=== PATIENT | female | born 1940 | race Caucasian/White ===

== ENCOUNTER 2016-11-21 16:05 | Inpatient (IN) | payer OTHER ==
[~2016-11-21] VITALS: Ht 177.8 cm; Wt 110.4 kg
[~2016-11-21 16:05] MED LIST: CATAPRES0.2 MG PO; CRESTOR5 MG PO; FISH OIL WITH1 EACH PO; HYDROCHLOROTHIA25 MG PO; KLOR-CON M2020 MEQ PO; PERCOCET 5/31 TABLET PO; PERI-COLACE TA1 EACH PO
[2016-11-21 16:53] LABS: HEMATOCRIT 38.8 % (36.0-46.0); MCH 30.2 PG (29.0-34.0); MCHC 32.7 G/DL (30.0-36.0); MCV 92.2 FL (83-99); MEAN PLAT.VOLUME 10.7 uM^3 (9.5-12.4); PLATELET COUNT 204 K/uL (156-360); RBC DIS.WIDTH-CV 14.5 % (11.8-14.6); RBC DIS.WIDTH-SD 48.8 % (39-53); RED BLOOD COUNT 4.21 M/uL (3.80-5.20)
[2016-11-21 17:00] LABS: CHLORIDE 109 mEq/L (99-109); POTASSIUM 3.2 mEq/L (3.7-5.4); SODIUM 144 mEq/L (136-147)
[2016-11-21 17:02] LABS: GLUCOSE 121 mg/dL (70-99)
[2016-11-21 17:03] LABS: ANION GAP 11 MEQ/L (2-14)
[2016-11-21 17:05] LABS: GFR ESTIMATE (CALCULATED) 57 mL/min/
[2016-11-21 17:06] LABS: UREA NITROGEN (BUN) 14 mg/dL (9-23)
[2016-11-21 17:10] LABS: TROP-I INTERPRETATION NEGATIVE; TROPONIN-I 0.11 ng/mL (0.0-0.30)
[2016-11-21] MEDS ORDERED: PRESERVISION T1 EACH PO (18:10)
[2016-11-21] MEDS ORDERED: MEGARED OMEGA-1 EACH PO (18:11)
[2016-11-21] MEDS ORDERED: LOPRESSOR50 MG PO (18:11)
[2016-11-21] MEDS ORDERED: SUPER MULTIVIT1 EACH PO (18:11)
[2016-11-21 20:40] VITALS: BP 145/95
[2016-11-22 01:08] VITALS: BP 148/90
[2016-11-22 05:13] VITALS: BP 130/85
[2016-11-22 05:38] LABS: TROP-I INTERPRETATION NEGATIVE; TROPONIN-I 0.13 ng/mL (0.0-0.30)
[2016-11-22 05:51] LABS: ALKALINE PHOSPHATASE 115 IU/L (3-129); ANION GAP 12 MEQ/L (2-14); CHLORIDE 108 MEQ/L (99-109); GFR ESTIMATE (CALCULATED) 57 mL/min/; GLUCOSE 126 mg/dL (70-99); POTASSIUM 3.3 MEQ/L (3.7-5.4); SAMPLE HEMOLYSIS CHECK 0; SAMPLE ICTERIC CHECK 0; SAMPLE LIPEMIA CHECK 0; SODIUM 145 MEQ/L (136-147); TOTAL BILIRUBIN 1.7 MG/DL (0.0-1.0); UREA NITROGEN (BUN) 16 mg/dL (9-23)
[2016-11-22 07:38] VITALS: BP 155/108
[2016-11-22 12:09] VITALS: BP 138/89
[2016-11-22 13:10] LABS: TROP-I INTERPRETATION NEGATIVE
[2016-11-22 16:06] VITALS: BP 149/97
[2016-11-22 20:25] VITALS: BP 144/82
[2016-11-23 00:58] VITALS: BP 122/78
[2016-11-23 04:50] VITALS: BP 142/89
[2016-11-23 06:15] LABS: ALKALINE PHOSPHATASE 106 IU/L (3-129); ANION GAP 12 MEQ/L (2-14); CHLORIDE 106 MEQ/L (99-109); GFR ESTIMATE (CALCULATED) 51 mL/min/; GLUCOSE 127 mg/dL (70-99); POTASSIUM 3.3 MEQ/L (3.7-5.4); SAMPLE HEMOLYSIS CHECK 0; SAMPLE ICTERIC CHECK 0; SAMPLE LIPEMIA CHECK 0; SODIUM 144 MEQ/L (136-147); UREA NITROGEN (BUN) 21 mg/dL (9-23)
[2016-11-23 06:16] LABS: TOTAL BILIRUBIN 2.1 MG/DL (0.0-1.0)
[2016-11-23 08:15] VITALS: BP 130/100
[2016-11-23 11:02] VITALS: BP 120/84
[2016-11-23 15:00] VITALS: BP 131/88
[2016-11-23 19:49] VITALS: BP 147/96
[2016-11-24 00:06] VITALS: BP 114/82
[2016-11-24 06:00] VITALS: BP 148/70
[2016-11-24 06:12] LABS: ALKALINE PHOSPHATASE 114 IU/L (3-129); ANION GAP 12 MEQ/L (2-14); CHLORIDE 105 MEQ/L (99-109); GFR ESTIMATE (CALCULATED) 51 mL/min/; GLUCOSE 130 mg/dL (70-99); POTASSIUM 3.2 MEQ/L (3.7-5.4); SAMPLE HEMOLYSIS CHECK 0; SAMPLE ICTERIC CHECK 0; SAMPLE LIPEMIA CHECK 0; SODIUM 144 MEQ/L (136-147); UREA NITROGEN (BUN) 23 mg/dL (9-23)
[2016-11-24 06:16] LABS: TOTAL BILIRUBIN 1.5 MG/DL (0.0-1.0)
[2016-11-24 07:17] VITALS: BP 122/81
[2016-11-24 11:14] VITALS: BP 112/59
[2016-11-24 15:16] VITALS: BP 104/57
[2016-11-24 20:28] VITALS: BP 119/73
[2016-11-25 00:08] VITALS: BP 125/75
[2016-11-25 05:51] VITALS: BP 122/83
[2016-11-25 07:19] VITALS: BP 126/78
[2016-11-25 09:31] LABS: ALKALINE PHOSPHATASE 116 IU/L (3-129); ANION GAP 13 MEQ/L (2-14); CHLORIDE 105 MEQ/L (99-109); GFR ESTIMATE (CALCULATED) 57 mL/min/; GLUCOSE 175 mg/dL (70-99); HDL CHOLESTEROL 25 MG/DL (Desirable>=50); LDL CHOLESTEROL 80 mg/dL (Desirable<100); NON-HDL CHOLESTEROL 103 mg/dL (Desirable<160); POTASSIUM 3.8 MEQ/L (3.7-5.4); SAMPLE HEMOLYSIS CHECK 0; SAMPLE ICTERIC CHECK 0; SAMPLE LIPEMIA CHECK 0; SODIUM 144 MEQ/L (136-147); TOTAL BILIRUBIN 1.4 MG/DL (0.0-1.0); TOTAL CHOLESTEROL 128 mg/dL (Desirable<200); TRIGLYCERIDES 115 MG/DL (Normal: <150); UREA NITROGEN (BUN) 24 mg/dL (9-23)
[2016-11-25] MEDS ORDERED: LISINOPRIL5 MG PO (10:23)
[2016-11-25] MEDS ORDERED: SIMVASTATIN10 MG PO (10:23)
[2016-11-25] MEDS ORDERED: K-DUR20 MEQ PO (10:23)
[2016-11-25] MEDS ORDERED: ASPIRIN81 M2 PO (10:23)
[2016-11-25] MEDS ORDERED: THERAGRAN1 TABLET PO (10:23)
[2016-11-25] MEDS ORDERED: KLOR-CON M2020 MEQ PO (10:26)
[2016-11-25] MEDS ORDERED: LASIX40 MG PO (10:26)
[2016-11-25 11:23] VITALS: BP 113/60
== END 2016-11-25 13:05 | disposition home health service (06) | DRG 292 ==
LOC: EME 16:05 → EDOF 18:00 → 4EAST 18:00 → ENRESERV 18:20 → 4EAST 20:39
PROVIDERS: Family Medicine; Internal Medicine
DX: I50.23 Acute on chronic systolic (congestive) heart failure (principal); I47.2 Ventricular tachycardia; I11.0 Hypertensive heart disease with heart failure; I25.5 Ischemic cardiomyopathy; I25.10 Atherosclerotic heart disease of native coronary artery without angina pectoris; E66.9 Obesity, unspecified; R29.810 Facial weakness; E87.6 Hypokalemia; E78.5 Hyperlipidemia, unspecified; Z68.35 Body mass index [BMI] 35.0-35.9, adult; Z85.048 Personal history of other malignant neoplasm of rectum, rectosigmoid junction, and anus; Z93.3 Colostomy status; Z87.891 Personal history of nicotine dependence; Z98.61 Coronary angioplasty status
CPT/HCPCS: 71020; 80048; 80053; 80061; 83880; 84443; 84484; 85027; 93005; 93306; 99281; 99285; J1650; J1940

== ENCOUNTER 2017-03-12 17:27 | Inpatient (IN) | payer OTHER ==
[~2017-03-12] VITALS: Ht 175.3 cm; Wt 115.6 kg
[~2017-03-12 17:27] MED LIST changes: +ASPIRIN81 M2 PO; +K-DUR20 MEQ PO; +LASIX40 MG PO; +LISINOPRIL5 MG PO; +LOPRESSOR50 MG PO; +PRESERVISION T1 EACH PO; +SIMVASTATIN10 MG PO; +SUPER MULTIVIT1 EACH PO; +THERAGRAN1 TABLET PO
[2017-03-12 18:08] LABS: HEMATOCRIT 40.8 % (36.0-46.0); HEMOGLOBIN 13.1 G/DL (11.9-15.5); MCH 27.2 PG (29.0-34.0); MCHC 32.1 G/DL (30.0-36.0); MCV 84.6 FL (83-99); PLATELET COUNT 186 K/uL (156-360); RBC DIS.WIDTH-CV 17.6 % (11.8-14.6); RBC DIS.WIDTH-SD 52.4 % (39-53); RED BLOOD COUNT 4.82 M/uL (3.80-5.20); WHITE BLOOD COUNT 5.8 K/uL (4.1-10.2)
[2017-03-12 18:22] LABS: CHLORIDE 109 mEq/L (99-109); POTASSIUM 3.1 mEq/L (3.7-5.4); SODIUM 143 mEq/L (136-147)
[2017-03-12 18:24] LABS: GLUCOSE 97 mg/dL (70-99)
[2017-03-12 18:28] LABS: CREATININE 1.1 mg/dL (0.6-1.3); GFR ESTIMATE (CALCULATED) 51 mL/min/
[2017-03-12 18:29] LABS: UREA NITROGEN (BUN) 21 mg/dL (9-23)
[2017-03-12 18:37] LABS: TROP-I INTERPRETATION NEGATIVE; TROPONIN-I 0.06 ng/mL (0.0-0.30)
[2017-03-12] MEDS ORDERED: CARVEDILOL3.125 MG PO (19:39)
[2017-03-12] MEDS ORDERED: OLMESARTAN MEDO20 MG PO (19:39)
[2017-03-12] MEDS ORDERED: MICRO-K10 ME2 PO (19:40)
[2017-03-12] MEDS ORDERED: METFORMIN HCL500 M1 PO (19:41)
[2017-03-12] MEDS ORDERED: ENTRESTO 24 MG1 EACH PO (19:43)
[2017-03-12] MEDS ORDERED: MEGARED OMEGA-1 EACH PO (19:44)
[2017-03-12 23:00] VITALS: BP 119/77
[2017-03-13 08:15] LABS: TROP-I INTERPRETATION NEGATIVE; TROPONIN-I 0.07 ng/mL (0.0-0.30)
[2017-03-13 08:38] VITALS: BP 101/65
[2017-03-13 09:15] LABS: ALBUMIN 3.1 G/DL (3.2-4.8); ALKALINE PHOSPHATASE 104 IU/L (3-129); ALT (GPT) 9 IU/L (3-49); AST (GOT) 18 IU/L (2-34); CHLORIDE 107 MEQ/L (99-109); GFR ESTIMATE (CALCULATED) 57 mL/min/; GLUCOSE 112 mg/dL (70-99); POTASSIUM 3.2 MEQ/L (3.7-5.4); SODIUM 147 MEQ/L (136-147); TOTAL BILIRUBIN 3.6 MG/DL (0.0-1.0); TOTAL PROTEIN 5.1 G/DL (6.4-8.3); UREA NITROGEN (BUN) 22 mg/dL (9-23)
[2017-03-13 13:26] VITALS: BP 101/54
[2017-03-13 16:25] VITALS: BP 92/61
[2017-03-13 19:06] VITALS: BP 113/57
[2017-03-13 23:57] VITALS: BP 97/57
[2017-03-14] VITALS (7 sets, daily range): BP systolic 90–112; BP diastolic 51–65
[2017-03-14 06:27] LABS: CHLORIDE 106 MEQ/L (99-109); CREATININE 1.2 MG/DL (0.6-1.3); GFR ESTIMATE (CALCULATED) 46 mL/min/; GLUCOSE 106 mg/dL (70-99); POTASSIUM 3.2 MEQ/L (3.7-5.4); SODIUM 145 MEQ/L (136-147); UREA NITROGEN (BUN) 22 mg/dL (9-23)
[2017-03-15 04:26] VITALS: BP 93/56
[2017-03-15 06:43] LABS: CHLORIDE 105 MEQ/L (99-109); CREATININE 1.2 MG/DL (0.6-1.3); GFR ESTIMATE (CALCULATED) 46 mL/min/; GLUCOSE 121 mg/dL (70-99); SODIUM 142 MEQ/L (136-147); UREA NITROGEN (BUN) 24 mg/dL (9-23)
[2017-03-15 06:48] LABS: POTASSIUM 4.1 MEQ/L (3.7-5.4)
[2017-03-15 07:20] VITALS: BP 98/62
[2017-03-15 11:27] VITALS: BP 100/58
[2017-03-15 16:15] VITALS: BP 148/94
[2017-03-15 20:07] VITALS: BP 122/70
[2017-03-15 22:13] VITALS: BP 108/78
[2017-03-16] VITALS (9 sets, daily range): BP systolic 95–139; BP diastolic 65–79
[2017-03-16 07:04] LABS: CHLORIDE 105 MEQ/L (99-109); CREATININE 1.2 MG/DL (0.6-1.3); GFR ESTIMATE (CALCULATED) 46 mL/min/; SODIUM 139 MEQ/L (136-147); UREA NITROGEN (BUN) 27 mg/dL (9-23)
[2017-03-16 07:19] LABS: GLUCOSE 90 mg/dL (70-99)
[2017-03-16 09:59] LABS: LYME DISEASE SEROLOGY SCREEN NEGATIVE (NEGATIVE)
[2017-03-17 03:45] VITALS: BP 120/70
[2017-03-17 07:05] LABS: CHLORIDE 102 MEQ/L (99-109); CREATININE 1.1 MG/DL (0.6-1.3); GFR ESTIMATE (CALCULATED) 51 mL/min/; GLUCOSE 99 mg/dL (70-99); POTASSIUM 4.4 MEQ/L (3.7-5.4); SODIUM 139 MEQ/L (136-147); UREA NITROGEN (BUN) 29 mg/dL (9-23)
[2017-03-17 07:56] VITALS: BP 117/65
[2017-03-17 11:46] VITALS: BP 113/61
[2017-03-17 15:53] VITALS: BP 114/73
[2017-03-17 20:47] VITALS: BP 99/61
[2017-03-18 00:50] VITALS: BP 170/67
[2017-03-18 00:51] VITALS: BP 109/73
[2017-03-18 07:18] LABS: CHLORIDE 103 MEQ/L (99-109); CREATININE 1.3 MG/DL (0.6-1.3); GFR ESTIMATE (CALCULATED) 42 mL/min/; GLUCOSE 101 mg/dL (70-99); POTASSIUM 3.9 MEQ/L (3.7-5.4); SODIUM 144 MEQ/L (136-147); UREA NITROGEN (BUN) 29 mg/dL (9-23)
[2017-03-18 08:29] VITALS: BP 122/70
[2017-03-18 12:11] VITALS: BP 99/74
[2017-03-18 13:17] LABS: HEMOGLOBIN A1c (GLYCOHEMOGLOB) 6.9 % (Below 5.7)
[2017-03-18 15:38] VITALS: BP 139/93
[2017-03-18 20:06] VITALS: BP 112/73
[2017-03-19 00:03] VITALS: BP 142/86
[2017-03-19 07:12] VITALS: BP 104/61
[2017-03-19 07:21] LABS: CHLORIDE 102 MEQ/L (99-109); CREATININE 1.2 MG/DL (0.6-1.3); GFR ESTIMATE (CALCULATED) 46 mL/min/; GLUCOSE 96 mg/dL (70-99); SODIUM 138 MEQ/L (136-147); UREA NITROGEN (BUN) 31 mg/dL (9-23)
[2017-03-19 09:12] VITALS: BP 110/52
[2017-03-19 11:00] VITALS: BP 104/70
[2017-03-19] MEDS ORDERED: ENTRESTO 49 MG1 EACH PO (12:59)
== END 2017-03-19 14:24 | DRG 292 ==
LOC: EME 17:27 → 5EAST 19:23 → EDOF 19:23 → ENRESERV 19:40 → 5EAST 21:53 → ENPENDDIS 03-19 → EDPENDDISTM 03-19 14:00 → 5EAST 03-19 14:24
PROVIDERS: Internal Medicine; Physician Assistant Medical; Psychiatry & Neurology Neurology
DX: I11.0 Hypertensive heart disease with heart failure (principal); I50.23 Acute on chronic systolic (congestive) heart failure; I47.2 Ventricular tachycardia; E87.6 Hypokalemia; I42.0 Dilated cardiomyopathy; I25.5 Ischemic cardiomyopathy; I25.10 Atherosclerotic heart disease of native coronary artery without angina pectoris; E11.9 Type 2 diabetes mellitus without complications; G24.9 Dystonia, unspecified; R29.810 Facial weakness; R26.9 Unspecified abnormalities of gait and mobility; E66.01 Morbid (severe) obesity due to excess calories; Z68.37 Body mass index [BMI] 37.0-37.9, adult; Z85.048 Personal history of other malignant neoplasm of rectum, rectosigmoid junction, and anus; Z93.3 Colostomy status; Z87.891 Personal history of nicotine dependence
CPT/HCPCS: 70450; 71046; 80048; 80053; 82948; 83036; 84484; 85027; 86618; 93005; 99281; 99285; J1650; J1940